=== PATIENT | male | born 1940 | race Caucasian/White ===

== ENCOUNTER 2017-07-09 06:35 | Day surgery (SDC) | payer MEDICARE, OTHER ==
[~2017-07-09] VITALS: Ht 180.3 cm; Wt 75.0 kg
[~2017-07-09 06:35] MED LIST: ATELVIA35 MG PO; ATOR20 PO; Aspirin EC81 MG PO; CLOP75 PO
[2017-07-09] MEDS ORDERED: XARELTO15 MG PO (13:48)
[2017-07-09] MEDS ORDERED: CLOP75 PO (16:51)
== END 2017-07-09 17:30 | disposition home or self-care (01) ==
LOC: MHTC 06:35
PROC: 047D34Z Dilation of Left Common Iliac Artery with Drug-eluting Intraluminal Device, Percutaneous Approach (ICD-10-PCS; principal; 2017-07-09)
PROC: 04CD3ZZ Extirpation of Matter from Left Common Iliac Artery, Percutaneous Approach (ICD-10-PCS; principal; 2017-07-09)
PROC: 047J34Z Dilation of Left External Iliac Artery with Drug-eluting Intraluminal Device, Percutaneous Approach (ICD-10-PCS; principal; 2017-07-09)
PROC: 04CJ3ZZ Extirpation of Matter from Left External Iliac Artery, Percutaneous Approach (ICD-10-PCS; principal; 2017-07-09)
DX: I70.212 Atherosclerosis of native arteries of extremities with intermittent claudication, left leg (principal); I70.92 Chronic total occlusion of artery of the extremities; E78.5 Hyperlipidemia, unspecified; F17.210 Nicotine dependence, cigarettes, uncomplicated
CPT/HCPCS: 0238T; 37221; 75630; 75710; 75774; 85347; 99152; 99153; C1724; C1725; C1769; C1874; C1894; J0690; J1644; J2250; J2720; J3010; J7030; J7040; Q9967

== ENCOUNTER → 2018-10-03 | Outpatient (CLI) | payer MEDICARE, OTHER ==
[~2018-10-03] MED LIST changes: +XARELTO15 MG PO
== END | disposition home or self-care (01) ==
LOC: PLD 07:48 → LAB SHORT 07:48
DX: C44.321 Squamous cell carcinoma of skin of nose (principal); L57.0 Actinic keratosis
CPT/HCPCS: 88305

== ENCOUNTER 2019-01-25 08:39 | Day surgery (SDC) | payer MEDICARE, OTHER ==
--- NOTE | 2019-01-25 11:01 | NUR ---
PT ARRIVED TO THE UNIT AT APROX [address] GUIDED KIDNEY BX. BX SITE R FLANK AREA COVERED WITH BAND AID-C/D/I. PT HYPERTENSIVE UPON ARRIVAL TO UNIT BP 219/96 HR 69. CONTACTED IMAGING TO REACH THE RADIOLOGIST WHO IS UNAVAILABLE AT THIS TIME. MESSAGE LEFT WITH CARINE LONGORIA AT APROX 1155 OF PTS CONTINUED HTN 195/104 SINCE ARRIVAL TO UNIT. PT HAS NO C/O HEADACH, ALL OTHER VS WNL. DENIES PAIN. WILL CONTINUE WITH POST-PROCEDURE VS MONITORING PER PROTOCOL.
--- NOTE | 2019-01-25 11:25 | NUR ---
RADIOLOGIST IN TO ROOM TO EVALUATE PATIENT. DISCUSSED NO NEW ORDERS GIVEN.
--- NOTE | 2019-01-25 12:39 | NUR ---
DISCHARGE-PT DISCHARGED HOME FROM UNIT AT APROX 1239. PT VERBALIZED UNDERSTANDING OF THESE INSTRUCTIONS.
== END 2019-01-25 23:00 | disposition home or self-care (01) ==
LOC: CT 08:39
DX: C64.1 Malignant neoplasm of right kidney, except renal pelvis (principal); C78.89 Secondary malignant neoplasm of other digestive organs; E78.5 Hyperlipidemia, unspecified; F17.290 Nicotine dependence, other tobacco product, uncomplicated; Z79.899 Other long term (current) drug therapy
CPT/HCPCS: 50200; 77012; 88108; 88305; 88341; 88342